=== PATIENT | female | born 1970 | race Caucasian/White ===

== ENCOUNTER → 2016-05-18 | Outpatient (CLI) | payer BC ==
--- NOTE | 2016-05-18 09:38 | MM ---
Reason for exam: additional evaluation requested from prior study. Last mammogram was performed 1 year ago. History: Family history of breast cancer in 2 maternal aunts. Benign excisional biopsy of the right breast, 2010. Benign right US cyst aspiration of the right breast, December 28, 2008. Benign right breast US guided needle local of both breasts, December 28, 2008. Benign US right core biopsy of the right breast, March 24, 2007. Benign US right core biopsy of the right breast, December 14, 2006. Benign US right core biopsy of the right breast, December 14, 2006. Physical Findings: Nurse did not find any significant physical abnormalities on exam. MG Diagnostic Mammo w CAD SHALOM Bilateral CC and MLO view(s) were taken. Prior study comparison: May 07, 2015, bilateral MG 3d diag mammo w/cad SHALOM. March 19, 2014, bilateral MG diagnostic mammo w CAD SHALOM. The breast tissue is heterogeneously dense. This may lower the sensitivity of mammography. Benign calcifications. There is chronic nodularity bilaterally, improved. No significant new findings when compared with previous films. These results were verbally communicated with the patient and result sheet given to the patient on 05/18/16. ASSESSMENT: Benign, BI-RAD 2 RECOMMENDATION: Routine screening mammogram of both breasts in 1 year. Manage patient on a clinical basis.
== END | disposition home or self-care (01) ==
LOC: RADMAMWWP 08:37
PROVIDERS: ATTEND Family Medicine
DX: R92.8 Other abnormal and inconclusive findings on diagnostic imaging of breast (principal)

== ENCOUNTER → 2016-10-06 | Outpatient (CLI) | payer BC ==
--- NOTE | 2016-10-06 09:52 | CT ---
EXAMINATION TYPE: CT abdomen pelvis w con DATE OF EXAM: 10/06/2016 9:36 AM HISTORY: Distention and discomfort right abdominal area CT DLP: 506.6mGycm Automated Exposure Control for Dose Reduction was Utilized. CONTRAST: CT scan of the abdomen and pelvis is performed with IV Contrast, patient injected with 100 mL of Omni paque 300. COMPARISON: CT abdomen and pelvis August 08, 2014. FINDINGS: LUNG BASES: No significant abnormality is appreciated. LIVER/GB: No significant abnormality is appreciated. PANCREAS: No significant abnormality is seen. SPLEEN: No significant abnormality is seen. ADRENALS: No significant abnormality is seen. KIDNEYS: Subcentimeter low dense lesion right lateral kidney mid pole level on image 30 series 5 is t oo small to further characterize but presumed benign and stable. BOWEL: The oral contrast reaches level of distal ileum. There is fecal filled terminal ileum. There i s no suspicious small bowel dilatation. CT findings are consistent with delayed ingestion of ingested material 2 colonic level. There is moderate prominence of fecal material in the right and transverse colon. No suspicious colonic distention is seen. There is mild prominence of fecal material in the r ectum. Appendix is upper limits of normal in size without surrounding inflammatory change seen best o n coronal image 36. UTERUS/ADNEXA: Uterus is retroverted in shape extending to right of midline, it is slightly prominent and lobulated similar to prior CT study. No definitive fibroids were seen on transvaginal pelvic ult rasound August 16, 2014. MRI is more sensitive performed if desired. LYMPH NODES: No greater than 1cm abdominal or pelvic lymph nodes are appreciated. OSSEOUS STRUCTURES: Mild multilevel spurring in the spine is present. OTHER: No significant additional abnormality is seen. IMPRESSION: Small bowel feces sign consistent with delayed passage of ingested to colonic level. No b owel obstruction is present. There is mild to moderate diffuse colonic fecal stasis noted.
== END | disposition home or self-care (01) ==
LOC: RADCTMAIN 08:39
PROVIDERS: ATTEND Family Medicine
DX: K59.8 Other specified functional intestinal disorders (principal); R10.11 Right upper quadrant pain
CPT/HCPCS: 74177; Q9967

== ENCOUNTER → 2019-06-30 | Outpatient (CLI) | payer BC ==
--- NOTE | 2019-06-30 14:51 | XR ---
EXAMINATION TYPE: XR shoulder complete LT DATE OF EXAM: 06/30/2019 CLINICAL HISTORY: pain COMPARISON: NONE TECHNIQUE: Three views of the left shoulder are obtained. FINDINGS: There is no acute fracture/dislocation evident. The acromioclavicular and glenohumeral [place] int spaces appear within normal limits. The visualized ribs are intact and unremarkable. IMPRESSION: 1. There is no acute fracture or dislocation. ICD 10 NO FRACTURE, INITIAL EVALUATION
--- NOTE | 2019-06-30 14:52 | XR ---
EXAMINATION TYPE: XR cervical spine comp DATE OF EXAM: 06/30/2019 CLINICAL HISTORY: pain COMPARISON: NONE TECHNIQUE: Frontal, lateral, oblique, swimmers, and open mouth view of the cervical spine are obtaine d. FINDINGS: The cervical spine is visualized in its entirety from C1 thru the top of T1 level. It is s atisfactory in alignment without evidence of acute fracture or dislocation. The pre-vertebral soft t issue appears within normal limits. Disc spaces are well preserved. The C1-C2 articulation is unremar kable on the open mouth view. The oblique images are within normal limits. IMPRESSION: No acute fracture or dislocation is seen in the cervical spine.ICD 10 NO FRACTURE, INITI AL EVALUATION
--- NOTE | 2019-06-30 14:52 | XR ---
EXAMINATION TYPE: XR Hip Bilateral Complete DATE OF EXAM: 06/30/2019 CLINICAL HISTORY: pain TECHNIQUE: AP and frogleg views of the bilateral hips are obtained. COMPARISON: None. FINDINGS: There is no acute fracture/dislocation evident. The joint space appears within normal li mits. The overlying soft tissue appears unremarkable. IMPRESSION: 1. There is no acute fracture or dislocation. ICD 10 NO FRACTURE, INITIAL EVALUATION
== END | disposition home or self-care (01) ==
LOC: RADXRMAIN 13:47
PROVIDERS: ATTEND Family Medicine
DX: M54.2 Cervicalgia (principal); M25.512 Pain in left shoulder; M25.551 Pain in right hip; M25.552 Pain in left hip
CPT/HCPCS: 72050; 73521

== ENCOUNTER → 2019-07-07 | Outpatient (CLI) | payer BC ==
--- NOTE | 2019-07-07 08:37 | MR ---
EXAMINATION TYPE: MR hip LT wo con DATE OF EXAM: 07/07/2019 COMPARISON: Bilateral hip x-ray from one week earlier.. HISTORY: Left hip pain Standard multiplanar, multisequence MRI departmental protocol Multiplanar, multisequence images of the pelvis focusing on left hip were acquired. FINDINGS: There is some heterogeneity consistent with red marrow reconversion throughout the pelvis a nd visualized portion of both hips. Left hip shows no suspicious edema. No serpiginous low T1 signal to suggest avascular necrosis is present. There is symmetric mild axial joint space loss in both hips . No significant spurring. No significant subchondral cystic change. Small symmetric joint effusions favored physiologic. Femoral head shape is maintained bilaterally. Muscle bulk in the left thigh is symmetric and within normal limits. No suspicious groin hernia or ad enopathy noted bilaterally. There is increased fluid signal at level of the greater trochanter in the right hip consistent with mild trochanteric bursitis coronal image 11 for reference and axial image 10. There is 2.9 cm thin-walled cyst in the right pelvis coronal image 12 with smaller adjacent cyst post eriorly or thin septa seen on axial images. Retroverted uterus is present. Left ovary has subcentimet er T2 hyperintense lesion axial image 20. Tubular low shaped structure in vaginal canal consistent wi th tampon is present. Poorly distended bladder. No concerning pelvic fluid collection. No suspicious bowel dilatation. Sacroiliac joints maintained. Pubic symphysis intact. IMPRESSION: Mild degenerative changes in left hip as detailed above.
== END | disposition home or self-care (01) ==
LOC: RADMRIMAIN 07:36
PROVIDERS: ATTEND Family Medicine
DX: M16.12 Unilateral primary osteoarthritis, left hip (principal)

== ENCOUNTER → 2021-07-01 | Outpatient (CLI) | payer BC ==
--- NOTE | 2021-07-01 12:03 | MM ---
Reason for exam: clinical finding. Last mammogram was performed 5 years and 1 month ago. History: Family history of breast cancer in 2 maternal aunts. Benign excisional biopsy of the right breast, 2010. Benign right US cyst aspiration of the right breast, December 28, 2008. Benign right breast US guided needle local of both breasts, December 28, 2008. Benign US right core biopsy of the right breast, March 24, 2007. Benign US right core biopsy of the right breast, December 14, 2006. Benign US right core biopsy of the right breast, December 14, 2006. Indicated problem(s): lump or thickening in the left breast. Physical Findings: Nurse did not find any significant physical abnormalities on exam. MG 3D Diag Mammo W/Cad SHALOM Bilateral CC and MLO view(s) were taken. Spot compression CC, spot compression MLO, and ML view(s) were taken of the left breast. Prior study comparison: May 18, 2016, bilateral MG diagnostic mammo w CAD SHALOM. May 07, 2015, bilateral MG 3d diag mammo w/cad SHALOM. The breast tissue is heterogeneously dense. This may lower the sensitivity of mammography. Left upper outer quadrant palpable marker. Questionable lateral left distortion at palpable. This may persist on spot 3D. No clear MLO or lateral correlate. These results were verbally communicated with the patient and result sheet given to the patient on 07/01/21. ASSESSMENT: Incomplete: need additional imaging evaluation, BI-RAD 0 RECOMMENDATION: Ultrasound of the left breast.
--- NOTE | 2021-07-01 12:06 | USB ---
Reason for exam: additional evaluation requested from abnormal screening. History: Family history of breast cancer in 2 maternal aunts. Benign excisional biopsy of the right breast, 2010. Benign right US cyst aspiration of the right breast, December 28, 2008. Benign right breast US guided needle local of both breasts, December 28, 2008. Benign US right core biopsy of the right breast, March 24, 2007. Benign US right core biopsy of the right breast, December 14, 2006. Benign US right core biopsy of the right breast, December 14, 2006. US Breast Limited LT Left limited breast ultrasound including focal area of concern, retroareolar and axilla demonstrates a 0.3 x 0.3 x 0.4cm focal dense tissue containing a tiny cyst at 2 o'clock. 6 month follow up mammogram and ultrasound recommended. If any suspicious changes at that time, 3D upright biopsy can be considered. These results were verbally communicated with the patient and result sheet given to the patient on 07/01/21. ASSESSMENT: Probably benign, BI-RAD 3 RECOMMENDATION: Follow-up diagnostic mammogram and ultrasound of the left breast in 6 months.
== END | disposition home or self-care (01) ==
LOC: RADMAMWWP 09:34
PROVIDERS: ATTEND Family Medicine
DX: N63.0 Unspecified lump in unspecified breast (principal)
CPT/HCPCS: 77062; 77066

== ENCOUNTER → 2022-01-09 | Outpatient (CLI) | payer BC ==
--- NOTE | 2022-01-09 13:49 | MM ---
Reason for Exam: Follow-up at short interval from prior study. Last screening mammogram was performed 7 month(s) ago. Patient History: Menarche at age 11. First Full-Term at age 15. Right ovary removed at age 32. 2010, Benign Excisional Biopsy on the right side. 12/28/2008, Benign Cyst Aspiration on the right side. 12/28/2008, Bilateral Benign Excisional Biopsy. 03/24/2007, Benign Core Biopsy on the right side. 12/14/2006, Benign Core Biopsy on the right side. 12/14/2006, Benign Core Biopsy on the right side. Maternal aunt had breast cancer. Maternal aunt had breast cancer. Risk Values: Ila 5 year model risk: 1.2%. NCI Lifetime model risk: 9.2%. Prior Study Comparison: 05/07/2015 Bilateral Diagnostic Mammogram, [facility]. 05/18/2016 Bilateral Diagnostic Mammogram, [facility]. 07/01/2021 Bilateral Diagnostic Mammogram, [facility]. Tissue Density: Left: The breast tissue is heterogeneously dense. This may lower the sensitivity of mammography. Findings: Analyzed By CAD. There is a 0.6 cm oval density with circumscribed margins in the upper-outer aspect left posterior breast 6 cm from the nipple. Ultrasound is recommended for additional evaluation. This is an interval finding. Overall Assessment: Incomplete: need additional imaging evaluation, BI-RAD 0 Management: Diagnostic Breast Ultrasound of the left breast. A negative mammogram report should not preclude additional follow up of suspicious palpable abnormalities. Patient should continue monthly self breast exam. A clinical breast exam by your physician is recommended on an annual basis and results should be correlated with mammographic findings. Electronically signed and approved by: Jose C Campa D.O. Radiologis
--- NOTE | 2022-01-09 14:14 | USB ---
Reason for Exam: Follow-up at short interval from prior study. Patient History: Menarche at age 11. First Full-Term at age 15. Right ovary removed at age 32. 2010, Benign Excisional Biopsy on the right side. 12/28/2008, Benign Cyst Aspiration on the right side. 12/28/2008, Bilateral Benign Excisional Biopsy. 03/24/2007, Benign Core Biopsy on the right side. 12/14/2006, Benign Core Biopsy on the right side. 12/14/2006, Benign Core Biopsy on the right side. Maternal aunt had breast cancer. Maternal aunt had breast cancer. Risk Values: Ila 5 year model risk: 1.2%. NCI Lifetime model risk: 9.2%. Technique: Method: Targeted. Prior Study Comparison: 05/07/2015 Bilateral Diagnostic Mammogram, [facility]. 05/18/2016 Bilateral Diagnostic Mammogram, [facility]. 07/01/2021 Bilateral Diagnostic Mammogram, [facility]. Findings: The upper outer quadrant of the left breast, the axilla of the left breast and the retroareolar of the left breast were scanned. There is a 0.7 x 0.4 x 0.8 cm cyst with good through transmission posterior wall enhancement and smooth borders at the 1:00 position compatible with a simple cyst. There appear to be 2 adjacent small cysts in the 2:00 position left breast. There is a simple appearing cyst at 3:00 measuring 0.8 x 0.5 cm. Adjacent 0.4 cm cyst is at the 3:00 position 3 cm from the nipple. Overall Assessment: Benign, BI-RAD 2 Management: Screening Mammogram of both breasts in 6 months. A clinical breast exam by your physician is recommended on an annual basis and results should be correlated with mammographic findings. Electronically signed and approved by: Jose C Campa D.O. Radiologis
== END | disposition home or self-care (01) ==
LOC: RADMAMWWP 12:58
PROVIDERS: ATTEND Family Medicine
DX: R92.8 Other abnormal and inconclusive findings on diagnostic imaging of breast (principal); Z80.3 Family history of malignant neoplasm of breast; Z98.890 Other specified postprocedural states; Z90.721 Acquired absence of ovaries, unilateral
CPT/HCPCS: 77065

== ENCOUNTER 2022-07-19 13:20 | Observation (INO) | payer BC ==
[2022-07-19] MEDS ORDERED: NITROGLYCERIN SL TABS 0.4 MG TAB SUBLINGUAL STA (13:41)
[2022-07-19] MEDS ORDERED: ASPIRIN 81 MG PO STA (13:41)
[2022-07-19] MEDS ORDERED: NITROGLYCERIN OINT 1 INCH/GM PACKET TOPICAL STA (13:41)
[2022-07-19] MEDS ORDERED: LORazepam 2 MG/ML INJ IV STA (13:41)
--- NOTE | 2022-07-19 13:45 | ED ---
General Adult HPI - General Chief complaint: Chest Pain Stated complaint: chest pain Time Seen by Provider: 07/19/22 13:30 Source: patient, RN notes reviewed, old records reviewed Mode of arrival: ambulatory Limitations: no limitations - History of Present Illness Initial comments: This is a 52-year-old female presents emergency Department with a past medical history significant for hypothyroidism for which she is not taking her medications any longer. Patient also states she has high blood pressure but she's not on medications that she is post get some follow-up blood work but never has. Patient doesn't not think she is at her at high cholesterol and she states she is a borderline diabetic. Patient denies any recent fever chills or cough per patient comes in today because she's placing some intermittent left- sided chest pain starts as a sharp pain but it progresses into a pressure and radiates into her armpit and arm. Patient also states she was mildly short of breath with it. Patient states she she has become diaphoretic when she gets the chest pain. Patient denies any nausea. Patient denies abdominal pain patient is any lightheadedness or dizziness. Patient denies palpitations. - Related Data Home Medications Medication Instructions Recorded Confirmed Cholecalciferol (Vitamin D3) 2,000 unit PO MOTUWETHFR 12/05/18 12/05/18 [Vitamin D3] Cholecalciferol (Vitamin D3) 4,000 unit PO SUSA 12/05/18 12/05/18 [Vitamin D3] Cyanocobalamin [Vitamin B-12] 500 mcg SUBLINGUAL DAILY 12/05/18 12/05/18 Dextroamphetamine/Amphetamine 20 mg PO BID 12/05/18 12/05/18 [Adderall] Famotidine [Pepcid AC] 10 mg PO DAILY PRN 12/05/18 12/05/18 Ibuprofen [Advil] 200 mg PO Q8HR PRN 12/05/18 12/05/18 Levothyroxine Sodium [Synthroid] 88 mcg PO DAILY 12/05/18 12/05/18 Turmeric Root Extract [Turmeric] 500 mg PO DAILY 12/05/18 12/05/18 Allergies Allergy/AdvReac Type Severity Reaction Status Date / Time No Known Allergies Allergy Verified 07/19/22 13:26 Review of Systems ROS Statement: Those systems with pertinent positive or pertinent negative responses have been documented in the HPI. ROS Other: All systems not noted in ROS Statement are negative. Past Medical History Past Medical History: Asthma, GERD/Reflux, Hypertension, Thyroid Disorder Additional Past Medical History / Comment(s): heart murmur History of Any Multi-Drug Resistant Organisms: None Reported Past Surgical History: Tonsillectomy Additional Past Surgical History / Comment(s): 2 ectopic surgery, thyroidectomy for goiter Past Anesthesia/Blood Transfusion Reactions: Postoperative Nausea & Vomiting (PONV) Additional Past Anesthesia/Blood Transfusion Reaction / Comment(s): mom-ponv Past Psychological History: ADD/ADHD, Anxiety Smoking Status: Former smoker Past Alcohol Use History: Rare Past Drug Use History: Marijuana - Past Family History Father Family Medical History: Cancer Sister(s) Family Medical History: Cancer Additional Family Medical History / Comment(s): 1-ovarian, 1 thyroid. maternal grandma hx rectal cancer General Exam - General Exam Comments Initial Comments: GENERAL: Patient is well-developed and well-nourished. Patient is nontoxic and well- hydrated and is in mild distress. ENT: Neck is soft and supple. No significant lymphadenopathy is noted. Oropharynx is clear. Moist mucous membranes. Neck has full range of motion without eliciting any pain. EYES: The sclera were anicteric and conjunctiva were pink and moist. Extraocular movements were intact and pupils were equal round and reactive to light. Eyelids were unremarkable. PULMONARY: Unlabored respirations. Good breath sounds bilaterally. No audible rales rhonchi or wheezing was noted. CARDIOVASCULAR: There is a regular rate and rhythm without any murmurs gallops or rubs. ABDOMEN: Soft and nontender with normal bowel sounds. SKIN: Skin is clear with no lesions or rashes and otherwise unremarkable. NEUROLOGIC: Patient is alert and oriented x3. Cranial nerves II through XII are grossly intact. Motor and sensory are also intact. Normal speech, volume and content. Symmetrical smile. MUSCULOSKELETAL: Normal extremities with adequate strength and full range of motion. No lower extremity swelling or edema. No calf tenderness. LYMPHATICS: No significant lymphadenopathy is noted PSYCHIATRIC: Patient is mildly anxious Limitations: no limitations Course Vital Signs 07/19/22 07/19/22 13:26 14:09 Temperature 98 F Pulse Rate 75 82 Respiratory 18 20 Rate Blood Pressure 200/116 144/90 O2 Sat by Pulse 98 Oximetry Medical Decision Making - Medical Decision Making EKG is interpreted by myself shows a sinus rhythm at 60 bpm WA interval 145 QRS is 92 QT interval 370 QTC is 396. Patient's EKG shows no ST segment elevation. There is minimal ST segment depression in the inferior leads Was pt. sent in by a medical professional or institution (, PA, SALES ENGAGEMENT MANAGER, urgent care, hospital, or [facility]...) When possible be specific @ -No Did you speak to anyone other than the patient for history (EMS, parent, family, police, friend...)? What history was obtained from this source @ -No Did you review nursing and triage notes (agree or disagree)? Why? @ -I reviewed and agree with nursing and triage notes Were old charts reviewed (outside hosp., previous admission, EMS record, old EKG, old radiological studies, urgent care reports/EKG's, [facility] records)? Report findings @ -Reviewed prior lab work prior radiological studies. Differential Diagnosis (chest pain, altered mental status, abdominal pain women, abdominal pain men, vaginal bleeding, weakness, fever, dyspnea, syncope, h eadache, dizziness, GI bleed, back pain, seizure, CVA, palpatations, mental health, musculoskeletal)? @ -Differential Chest Pain: Stable Angina, Unstable Angina, STEMI, NSTEMI Aortic Dissection, Pneumothorax, Musculoskeletal, Esophageal Spasm GERD, Cholecystitis, Pancreatitis, Zoster, this is not meant to be an all-inclusive list. EKG interpreted by me (3pts min.). @ -As above X-rays interpreted by me (1pt min.). @ -Chest x-ray was interpreted by myself showed no acute abnormality CT interpreted by me (1pt min.). @ -None done U/S interpreted by me (1pt. min.). @ -None done What testing was considered but not performed or refused? (CT, X-rays, U/S, labs)? Why? @ -None What meds were considered but not given or refused? Why? @ -None Did you discuss the management of the patient with other professionals ( professionals i.e. , PA, SALES ENGAGEMENT MANAGER, lab, RT, psych nurse, mental health social worker, vegetable farming supervisor, teacher, correctional officer sergeant, disease case manager rn)? Give summary @ -I spoke with Dr. rios he agreed to admit the patient admitted the patient wrote admitting orders Was smoking cessation discussed for >3mins.? @ -No Was critical care preformed (if so, how long)? @ -No Were there social determinants of health that impacted care today? How? (Homelessness, low income, unemployed, alcoholism, drug addiction, transportat ion, low edu. Level, literacy, decrease access to med. care, halfway, rehab)? @ -No Was there de-escalation of care discussed even if they declined (Discuss DNR or withdrawal of care, Hospice)? DNR status @ -No What co-morbidities impacted this encounter? (DM, HTN, Smoking, COPD, CAD, Cancer, CVA, ARF, Chemo, Hep., AIDS, mental health diagnosis, sleep apnea, morbid obesity)? @ -Hypertension, borderline diabetic Was patient admitted / discharged? Hospital course, mention meds given and route, prescriptions, significant lab abnormalities, going to OR and other pertinent info. @ -I initially saw patient in the emergency department EKG was done no acute abnormalities were noted. Lab work showed no acute abnormalities. Patient did receive a nitroglycerin at helped with the pain troponin was negative. I spoke with Dr. rios he agreed to admit the patient admitted the patient I consult to cardiology. Undiagnosed new problem with uncertain prognosis? @ -No Drug Therapy requiring intensive monitoring for toxicity (Heparin, Nitro, Insulin, Cardizem)? @ -No Were any procedures done? @ -No Diagnosis/symptom? @ -Chest pain Acute, or Chronic, or Acute on Chronic? @ -Acute Uncomplicated (without systemic symptoms) or Complicated (systemic symptoms)? @ -Complicated Side effects of treatment? @ -No Exacerbation, Progression, or Severe Exacerbation? @ -No Poses a threat to life or bodily function? How? (Chest pain, USA, CT, pneumonia, PE, COPD, DKA, ARF, appy, cholecystitis, CVA, Diverticulitis, Homicidal, Suicidal, threat to staff... and all critical care pts) @ -Yes is completely to hypoperfusion and end oriented dysfunction - Lab Data Result diagrams: 07/19/22 13:51 07/19/22 13:51 Lab Results 07/19/22 07/19/22 07/19/22 Range/Units 13:51 13:51 13:51 WBC 8.9 (3.8-10.6) k/uL RBC 5.60 H (3.80-5.40) m/uL Hgb 15.8 (11.4-16.0) gm/dL Hct 46.8 H (34.0-46.0) % MCV 83.5 (80.0-100.0) fL MCH 28.3 (25.0-35.0) pg MCHC 33.9 (31.0-37.0) g/dL RDW 12.4 (11.5-15.5) % Plt Count 320 (150-450) k/uL MPV 7.9 Neutrophils % 67 % Lymphocytes % 25 % Monocytes % 5 % Eosinophils % 1 % Basophils % 1 % Neutrophils # 6.0 (1.3-7.7) k/uL Lymphocytes # 2.2 (1.0-4.8) k/uL Monocytes # 0.5 (0-1.0) k/uL Eosinophils # 0.1 (0-0.7) k/uL Basophils # 0.1 (0-0.2) k/uL PT 10.7 (9.0-12.0) sec INR 1.0 (<1.2) APTT 22.5 (22.0-30.0) sec Sodium 136 L (137-145) mmol/L Potassium 4.4 (3.5-5.1) mmol/L Chloride 98 (98-107) mmol/L Carbon Dioxide 27 (22-30) mmol/L Anion Gap 11 mmol/L BUN 16 (7-17) mg/dL Creatinine 0.65 (0.52-1.04) mg/dL Est GFR (CKD-EPI)AfAm >90 (>60 ml/min/1.73 sqM) Est GFR (CKD-EPI)NonAf >90 (>60 ml/min/1.73 sqM) Glucose 118 H (74-99) mg/dL Calcium 9.9 (8.4-10.2) mg/dL Magnesium 1.9 (1.6-2.3) mg/dL Total Bilirubin 0.7 (0.2-1.3) mg/dL AST 28 (14-36) U/L ALT 27 (4-34) U/L Alkaline Phosphatase 75 (38-126) U/L Troponin I (0.000-0.034) ng/mL Total Protein 8.6 H (6.3-8.2) g/dL Albumin 5.1 H (3.5-5.0) g/dL TSH 1.500 (0.465-4.680) mIU/L 07/19/22 Range/Units 13:51 WBC (3.8-10.6) k/uL RBC (3.80-5.40) m/uL Hgb (11.4-16.0) gm/dL Hct (34.0-46.0) % MCV (80.0-100.0) fL MCH (25.0-35.0) pg MCHC (31.0-37.0) g/dL RDW (11.5-15.5) % Plt Count (150-450) k/uL MPV Neutrophils % % Lymphocytes % % Monocytes % % Eosinophils % % Basophils % % Neutrophils # (1.3-7.7) k/uL Lymphocytes # (1.0-4.8) k/uL Monocytes # (0-1.0) k/uL Eosinophils # (0-0.7) k/uL Basophils # (0-0.2) k/uL PT (9.0-12.0) sec INR (<1.2) APTT (22.0-30.0) sec Sodium (137-145) mmol/L Potassium (3.5-5.1) mmol/L Chloride (98-107) mmol/L Carbon Dioxide (22-30) mmol/L Anion Gap mmol/L BUN (7-17) mg/dL Creatinine (0.52-1.04) mg/dL Est GFR (CKD-EPI)AfAm (>60 ml/min/1.73 sqM) Est GFR (CKD-EPI)NonAf (>60 ml/min/1.73 sqM) Glucose (74-99) mg/dL Calcium (8.4-10.2) mg/dL Magnesium (1.6-2.3) mg/dL Total Bilirubin (0.2-1.3) mg/dL AST (14-36) U/L ALT (4-34) U/L Alkaline Phosphatase (38-126) U/L Troponin I <0.012 (0.000-0.034) ng/mL Total Protein (6.3-8.2) g/dL Albumin (3.5-5.0) g/dL TSH (0.465-4.680) mIU/L Disposition Clinical Impression: Chest pain Disposition: ADMITTED IP TO THIS HOSP Referrals: Ladonna Solomon MD [Primary Care Provider] - 1-2 days Time of Disposition: 14:50
[2022-07-19 14:06] LABS: Basophils # (A) 0.1 k/uL (0-0.2); Basophils % (A) 1 %; Eosinophils # (A) 0.1 k/uL (0-0.7); Eosinophils % (A) 1 %; HCT 46.8 % (34.0-46.0); HGB 15.8 gm/dL (11.4-16.0); Lymphocytes # (A) 2.2 k/uL (1.0-4.8); Lymphocytes % (A) 25 %; MCH 28.3 pg (25.0-35.0); MCHC 33.9 g/dL (31.0-37.0); MCV 83.5 fL (80.0-100.0); Mean Platelet Volume 7.9; Monocytes # (A) 0.5 k/uL (0-1.0); Monocytes % (A) 5 %; Neutrophils % (A) 67 %; Platelet Count 320 k/uL (150-450); RDW 12.4 % (11.5-15.5); WBC 8.9 k/uL (3.8-10.6)
[2022-07-19 14:09] LABS: Potassium 4.4 mmol/L (3.5-5.1)
[2022-07-19 14:10] LABS: ALT 27 U/L (4-34); AST 28 U/L (14-36); African American GFR (CKD) >90 (>60 ml/min/1.73 sqM); Albumin 5.1 g/dL (3.5-5.0); Alkaline Phosphatase 75 U/L (38-126); Anion Gap 11 mmol/L; Blood Urea Nitrogen 16 mg/dL (7-17); Calcium 9.9 mg/dL (8.4-10.2); Carbon Dioxide 27 mmol/L (22-30); Chloride 98 mmol/L (98-107); Glucose 118 mg/dL (74-99); Magnesium 1.9 mg/dL (1.6-2.3); Non-African American GFR(CKD) >90 (>60 ml/min/1.73 sqM); Sodium 136 mmol/L (137-145); Total Bilirubin 0.7 mg/dL (0.2-1.3); Total Protein 8.6 g/dL (6.3-8.2)
[2022-07-19 14:11] LABS: Partial Thromboplastin Time 22.5 sec (22.0-30.0); Prothrombin Time 10.7 sec (9.0-12.0)
--- NOTE | 2022-07-19 14:40 | XR ---
EXAMINATION TYPE: XR chest 2V DATE OF EXAM: 07/19/2022 2:35 PM COMPARISON: None relevant TECHNIQUE: XR chest 2V . CLINICAL INDICATION:Female, 52 years old with history of Chest Pain; FINDINGS: Lungs/Pleura: There is no evidence of pleural effusion, focal consolidation, or pneumothorax. Pulmonary vascularity: Unremarkable. Heart/mediastinum: Cardiomediastinal silhouette is unremarkable. Musculoskeletal: No acute osseous pathology. Degenerative changes of the thoracic spine. IMPRESSION: No acute cardiopulmonary disease/process.
[2022-07-19] MEDS ORDERED: NITROGLYCERIN SL TABS 0.4 MG TAB SUBLINGUAL PRN (14:50)
[2022-07-19] MEDS: NITROGLYCERIN OINT 1 INCH/GM PACKET TOPICAL SCH (17:14)
--- NOTE | 2022-07-19 17:31 | P.HPIM ---
History of Present Illness This is a pleasant 52 years old female with no significant past medical history Presents because of chest pain since about 3 days ago, on and off, rated as 3/10 in severity on the presentation, mainly on the left chest, non radiating felt like stabbing and like flutter and locked pressure. Currently states that chest pain is completely resolved as 0/10. She denies any other complaints, no dyspnea or coughing, no change in urine or bowel habits, no dysuria urgency, no vomiting diarrhea or abdominal pain. She denies any neurological symptoms, she had little headache earlier but is gone now, no dizziness weakness or numbness She denies smoking alcohol or illicit drugs Vitals are stable. CBC, INR, BMP and liver enzymes are unremarkable. TSH is normal at 1.5 Chest x-ray: No acute cardiopulmonary process. EKG showing normal sinus rhythm at [address]-T changes. In the emergency room she was started on aspirin 325 mg and admitted with animal nutrition consultant evaluation Review of Systems Review of systems CONSTITUTIONAL: No fever, no malaise, no fatigue. HEENT: No recent visual problems or hearing problems. Denied any sore throat. CARDIOVASCULAR: No orthopnea, PND, no palpitations, no syncope. PULMONARY: No shortness of breath, no cough, no hemoptysis. GASTROINTESTINAL: No diarrhea, no nausea, no vomiting, no abdominal pain. Normoactive bowel sounds. NEUROLOGICAL: No headaches, no weakness, no numbness. HEMATOLOGICAL: Denies any bleeding or petechiae. GENITOURINARY: Denies any burning micturition, frequency, or urgency. MUSCULOSKELETAL/RHEUMATOLOGICAL: Denies any joint pain, swelling, or any muscle pain. ENDOCRINE: Denies any polyuria or polydipsia. Past Medical History Past Medical History: Asthma, GERD/Reflux, Hypertension, Thyroid Disorder Additional Past Medical History / Comment(s): heart murmur History of Any Multi-Drug Resistant Organisms: None Reported Past Surgical History: Tonsillectomy Additional Past Surgical History / Comment(s): 2 ectopic surgery, thyroidectomy for goiter Past Anesthesia/Blood Transfusion Reactions: Postoperative Nausea & Vomiting (PONV) Additional Past Anesthesia/Blood Transfusion Reaction / Comment(s): mom-ponv Past Psychological History: ADD/ADHD, Anxiety Smoking Status: Former smoker Past Alcohol Use History: Rare Additional Past Alcohol Use History / Comment(s): quit 1999 smoked 15 years 1 ppd Past Drug Use History: Marijuana - Past Family History Father Family Medical History: Cancer Sister(s) Family Medical History: Cancer Additional Family Medical History / Comment(s): 1-ovarian, 1 thyroid. maternal grandma hx rectal cancer Medications and Allergies Home Medications Medication Instructions Recorded Confirmed Type Cyanocobalamin [Vitamin B-12] 500 mcg PO DAILY 12/05/18 07/19/22 History Ascorbic Acid [Vitamin C] 3,000 mg PO DAILY 07/19/22 07/19/22 History Cholecalciferol [Vitamin D3 (25 50 mcg PO DAILY 07/19/22 07/19/22 History Mcg = 1000 Iu)] Dextroamphetamine/Amphetamine 15 mg PO DIRECTED 07/19/22 07/19/22 History [Adderall] Magnesium Oxide [Magnesium] 500 mg PO DAILY 07/19/22 07/19/22 History Eminence-3/Dha/Epa/Fish Oil [Fish Oil 1 cap PO DAILY 07/19/22 07/19/22 History 1,000 mg Softgel] Zinc 10mg 10 mg PO DAILY 07/19/22 07/19/22 History Allergies Allergy/AdvReac Type Severity Reaction Status Date / Time No Known Allergies Allergy Verified 07/19/22 14:47 Physical Exam Vitals: Vital Signs Temp Pulse Pulse Resp BP BP Pulse Ox 07/19/22 16:11 98.0 F 74 16 113/75 98 07/19/22 15:42 80 20 118/91 96 07/19/22 14:09 82 20 144/90 07/19/22 13:26 98 F 75 18 200/116 98 Intake and Output 07/19/22 07/19/22 07/19/22 06:59 14:59 22:59 Other: Weight 72.575 kg 72.575 kg GENERAL: The patient is alert and oriented x3, not in any acute distress. Well developed, well nourished. HEENT: Pupils are round and equally reacting to light. EOMI. No scleral icterus. No conjunctival pallor. Normocephalic, atraumatic. No pharyngeal erythema. No thyromegaly. CARDIOVASCULAR: S1 and S2 present. No murmurs, rubs, or gallops. PULMONARY: Chest is clear to auscultation, no wheezing or crackles. ABDOMEN: Soft, nontender, nondistended, normoactive bowel sounds. No palpable organomegaly. MUSCULOSKELETAL: No joint swelling or deformity. EXTREMITIES: No cyanosis, clubbing, or pedal edema. NEUROLOGICAL: Gross neurological examination did not reveal any focal deficits. SKIN: No rashes. no petechiae. Results CBC & Chem 7: 07/19/22 13:51 03 13:51 Labs: Abnormal Lab Results - Last 24 Hours (Table) 07/19/22 07/19/22 Range/Units 13:51 13:51 RBC 5.60 H (3.80-5.40) m/uL Hct 46.8 H (34.0-46.0) % Sodium 136 L (137-145) mmol/L Glucose 118 H (74-99) mg/dL Total Protein 8.6 H (6.3-8.2) g/dL Albumin 5.1 H (3.5-5.0) g/dL Thrombosis Risk Factor Assmnt - Choose All That Apply Each Factor Represents 1 point: Age 41-60 years Thrombosis Risk Factor Assessment Total Risk Factor Score: 1 Thrombosis Risk Factor Assessment Level: Low Risk Assessment and Plan Assessment: Chest pain, rule out cardiac causes Mild anemia, normochromic normocytic Mild elevated glucose Plan: We'll do serial troponins and Check echocardiogram Continue with aspirin Cardiology consult Labs and medication were reviewed.. Continue same treatment. Continue with symptomatic treatment. Resume home medication. Monitor labs and vitals. DVT and GI prophylaxis. Further recommendations as per clinical course of the patient DVT prophylaxis: Subcutaneous heparin GI Prophylaxis: Pepcid Prognosis is guarded
[2022-07-19] MEDS: HEPARIN SODIUM,PORCINE/PF 5,000 UNIT/0.5 ML SYRINGE SQ SCH (22:13)
[2022-07-19] MEDS: FAMOTIDINE 20 MG/2 ML VIAL IV SCH (22:13)
[2022-07-20] MEDS ORDERED: HYDROcodone/APAP 5-325MG 1 EACH TAB PO PRN (01:03)
[2022-07-20] MEDS ORDERED: ONDANSETRON 4 MG/2 ML VIAL IVP PRN (01:05)
[2022-07-20] MEDS ORDERED: ACETAMINOPHEN TAB 325 MG TAB PO PRN (01:14)
[2022-07-20] MEDS: FAMOTIDINE 20 MG/2 ML VIAL IV SCH ×2 (08:14→19:58)
[2022-07-20] MEDS: HEPARIN SODIUM,PORCINE/PF 5,000 UNIT/0.5 ML SYRINGE SQ SCH ×2 (08:15→15:45)
[2022-07-20] MEDS ORDERED: ASPIRIN 325 MG TAB PO SCH (09:00)
[2022-07-20] MEDS ORDERED: METOPROLOL TARTRATE 25 MG TAB PO SCH (09:00)
[2022-07-20 09:15] LABS: Chol/HDL Ratio 3.98 Ratio; LDL Cholesterol,Calculated 146.6 mg/dL (0.0-131.0); VLDL Calculation 14.42 mg/dL (5.00-40.00)
[2022-07-20 10:23] LABS: T4, Free (Free Thyroxine) 1.29 ng/dL (0.78-2.19)
[2022-07-20] MEDS: NITROGLYCERIN OINT 1 INCH/GM PACKET TOPICAL SCH (11:03)
--- NOTE | 2022-07-20 11:20 | CONS ---
CONSULTATION HISTORY OF PRESENT ILLNESS: This is a 52-year-old lady, who carries a diagnosis of hypothyroidism, was on replacement therapy, but because she was euthyroid, her supplements were stopped. She also has some ADHD type picture and also borderline hypertension. She is admitted to the hospital with an episode of what seems to be palpitations and chest tightness and pressure. She does treadmill every day and as she was walking on the treadmill, she felt that her heart was racing faster than usual and she also then complained of some tightness and discomfort in the chest. She came into the hospital with these symptoms. Her symptoms of chest pain have resolved altogether. She walked on the treadmill on for about 20 minutes without any discomfort in the chest. The pain that occurred in the chest is quite independent from her treadmill activity. She carries a diagnosis of hypertension borderline, thyroid issues as mentioned above, bronchial asthma, and gastroesophageal reflux disease. She does use marijuana. She quit smoking several years ago. She also has a history of some thyroid surgery in the past as well. HOME MEDICATIONS: Include, 1. Synthroid, which was recently stopped. 2. Ibuprofen. 3. She takes Pepcid and some vitamin supplements. 4. She used to take Adderall, which she takes sporadically. PHYSICAL EXAMINATION: VITAL SIGNS: Blood pressure is 128/70, pulse rate initially was at 120 beats per minute, but now it is 82 beats per minute. HEENT: Unremarkable. Fundus was not examined by me. NECK: Supple. No JVD. I do not hear a carotid bruit. There is no thyromegaly. HEART: Reveals S1, S2 heard normally. No significant murmurs. LUNGS: Clear. ABDOMEN: Soft, nontender. EXTREMITIES: Lower extremities reveal normal pulses. No edema. CENTRAL NERVOUS SYSTEM: Normal. DIAGNOSTIC STUDIES: EKG revealed a sinus mechanism with a nonspecific ST abnormality. LABORATORY DATA: Revealed unremarkable troponins. Renal function is normal. D-dimer is pending. Her LDL cholesterol is 146. IMPRESSION: 1. Palpitations. 2. Atypical chest pain. 3. Borderline hypertension. 4. History of hypothyroidism, but appears to be euthyroid. 5. Hyperlipidemia. RECOMMENDATIONS: I will recommend that we start her on a small dose of metoprolol tartrate 12.5 mg b.i.d. She appears to be somewhat dehydrated clinically. I will place her on 75 mL normal saline, obtain echocardiogram, perform a stress echo tomorrow. We will check D- dimer and initiate her on Lipitor at 20 mg daily. I will also check a free T4 and free T3 as well. Discussed my thoughts in detail with the patient. Thank you very much for the consult. RYAN / ESCOBAR: [id number] /
[2022-07-20] MEDS: METOPROLOL TARTRATE 12.5 MG TAB PO SCH ×2 (11:49→20:55)
[2022-07-20] MEDS: ATORVASTATIN 20 MG TAB PO SCH (11:52)
--- NOTE | 2022-07-20 15:20 | P.PN ---
Subjective Progress Note Date: 07/20/22 This is a pleasant 52 years old female with no significant past medical history Presents because of chest pain since about 3 days ago, on and off, rated as 3/10 in severity on the presentation, mainly on the left chest, nonradiating felt like stabbing and like flutter and locked pressure. Currently states that chest pain is completely resolved as 0/10. She denies any other complaints, no dyspnea or coughing, no change in urine or bowel habits, no dysuria urgency, no vomiting diarrhea or abdominal pain. She denies any neurological symptoms, she had little headache earlier but is gone now, no dizziness weakness or numbness She denies smoking alcohol or illicit drugs Vitals are stable. CBC, INR, BMP and liver enzymes are unremarkable. TSH is normal at 1.5 Chest x-ray: No acute cardiopulmonary process. EKG showing normal sinus rhythm at [address]-T changes. In the emergency room she was started on aspirin 325 mg and admitted with core placer evaluation 07/20/2022 Patient is seen and evaluated follow-up currently maintained on telemetry monitoring with cardiology following. Patient underwent 2-D echo this morning which the read is currently pending and cardiology following working on possible stress testing in the a.m. Patient reports her chest pain is completely resolved and she denies any shortness of breath or palpitations associated. Patient reports she was told by nursing staff that her heart rate elevates while she is up and walking although she denies any itchiness, lightheadedness, palpitations, chest pain during this. Patient is agreeable to stay and await for the stress testing. Recommend telemetry monitoring overnight and patient will be nothing by mouth at midnight. Review of systems: Constitutional: No reports of fatigue, fever, or chills Cardiovascular: No reports of chest pain or palpitations Respiratory: No reports of shortness of breath or cough GI: No reports of nausea, vomiting, or diarrhea : No reports of dysuria or retention Neurovascular: No reports of weakness or numbness All medications have been reviewed Active Medications Acetaminophen (Acetaminophen Tab 325 Mg Tab) 650 mg PO Q6HR PRN PRN Reason: Fever and/ or Pain Last Admin: 07/20/22 03:16 Dose: 650 mg Hydrocodone Bitart/Acetaminophen (Hydrocodone/Apap 5-325mg 1 Each Tab) 1 each PO ONCE PRN PRN Reason: Pain Aspirin (Aspirin 81 Mg) 81 mg PO DAILY [facility] Atorvastatin Calcium (Atorvastatin 20 Mg Tab) 20 mg PO DAILY [facility] Last Admin: 07/20/22 11:52 Dose: Not Given Famotidine (Famotidine 20 Mg/2 Ml Vial) 20 mg IV Q12HR [facility] Last Admin: 07/20/22 08:14 Dose: Not Given Heparin Sodium (Porcine) (Heparin Sodium,Porcine/Pf 5,000 Unit/0.5 Ml Syringe) 5,000 unit SQ Q8HR [facility] Sodium Chloride (Saline 0.9%) 1,000 mls @ 75 mls/hr IV .[id number] [facility] Metoprolol Tartrate (Metoprolol Tartrate 12.5 Mg Tab) 12.5 mg PO BID [facility] Last Admin: 07/20/22 11:49 Dose: 12.5 mg Nitroglycerin (Nitroglycerin Sl Tabs 0.4 Mg Tab) 0.4 mg SUBLINGUAL Q5M PRN PRN Reason: Chest Pain Ondansetron HCl (Ondansetron 4 Mg/2 Ml Vial) 2 mg IVP Q6HR PRN PRN Reason: Nausea And Vomiting Physical exam: GENERAL: The patient is alert and oriented x3, not in any acute distress. Well developed, well nourished. HEENT: Pupils are round and equally reacting to light. EOMI. No scleral icterus. No conjunctival pallor. Normocephalic, atraumatic. No pharyngeal erythema. No thyromegaly. CARDIOVASCULAR: S1 and S2 present. No murmurs, rubs, or gallops. PULMONARY: Chest is clear to auscultation, no wheezing or crackles. ABDOMEN: Soft, nontender, nondistended, normoactive bowel sounds. No palpable organomegaly. MUSCULOSKELETAL: No joint swelling or deformity. EXTREMITIES: No cyanosis, clubbing, or pedal edema. NEUROLOGICAL: Gross neurological examination did not reveal any focal deficits. SKIN: No rashes. no petechiae. Assessment: Chest pain, atypical, ruled out ACS Mild elevated glucose, present on admission with no history of diabetes, sample was non-fasting History of hypothyroidism, currently euthyroid and maintained off supplements Hyperlipidemia Hypertension Plan: Recommend continue telemetry monitoring and patient did undergo 2-D echo which is currently pending Cardiology following and plans for stress testing in a.m. Patient did have some mildly elevated blood sugar reading and will obtain hemoglobin A1c. Patient does not have history of diabetes Troponins 3 have been negative and will follow-up on some labs in the a.m. Patient will be nothing by mouth at midnight and will await stress testing Possible discharge in the next 24-48 hours The impression and plan of care has been dictated by Isamar Miller, Nurse Practitioner as directed. Dr. Ayse MD I have performed a history and examination and MDM of this patient, discussed the same with the dictator, and agree with the dictator's assessment and plan as written ,documented as a scribe. Based on total visit time, I have performed more than 50% of the visit. Objective - Vital Signs Vital signs: Vital Signs Temp 97.9 F 07/20/22 08:00 Pulse 65 07/20/22 08:00 Resp 16 07/20/22 08:00 BP 122/80 07/20/22 08:00 Pulse Ox 98 07/20/22 09:28 FiO2 21 07/20/22 09:28 Intake & Output 07/19/22 07/20/22 07/20/22 18:59 06:59 18:59 Intake Total 240 Balance 240 Weight 72.575 kg 74.3 kg Intake: Oral 240 Other: Voiding Method Toilet # Voids 2 - Labs CBC & Chem 7: 07/19/22 13:51 07/19/22 13:51 Labs: Abnormal Lab Results - Last 24 Hours (Table) 07/19/22 07/19/22 07/20/22 Range/Units 13:51 13:51 05:25 RBC 5.60 H (3.80-5.40) m/uL Hct 46.8 H (34.0-46.0) % Sodium 136 L (137-145) mmol/L Glucose 118 H (74-99) mg/dL Total Protein 8.6 H (6.3-8.2) g/dL Albumin 5.1 H (3.5-5.0) g/dL Cholesterol 215.00 H (0.00-200.00) mg/dL LDL Cholesterol, Calc 146.6 H (0.0-131.0) mg/dL
[2022-07-20] MEDS: SODIUM CHLORIDE 0.9% 1,000 ML IV SCH (15:38)
[2022-07-21] MEDS: HEPARIN SODIUM,PORCINE/PF 5,000 UNIT/0.5 ML SYRINGE SQ SCH ×2 (00:02→08:23)
[2022-07-21] MEDS: SODIUM CHLORIDE 0.9% 1,000 ML IV SCH (03:47)
[2022-07-21 04:04] VITALS: TEMP 97.9
[2022-07-21 06:38] LABS: African American GFR (CKD) >90 (>60 ml/min/1.73 sqM); Anion Gap 4 mmol/L; Blood Urea Nitrogen 12 mg/dL (7-17); Calcium 8.7 mg/dL (8.4-10.2); Carbon Dioxide 32 mmol/L (22-30); Chloride 104 mmol/L (98-107); Glucose 111 mg/dL (74-99); Non-African American GFR(CKD) >90 (>60 ml/min/1.73 sqM); Sodium 140 mmol/L (137-145)
[2022-07-21] MEDS: ATORVASTATIN 20 MG TAB PO SCH (08:23)
[2022-07-21] MEDS: FAMOTIDINE 20 MG/2 ML VIAL IV SCH (08:24)
[2022-07-21 08:26] VITALS: BP 142/90; PULSE 57; RESP 16
[2022-07-21] MEDS ORDERED: ASPIRIN 81 MG PO SCH (09:00)
[2022-07-21] MEDS ORDERED: ATORVASTATIN 20 MG TAB PO SCH (09:00)
--- NOTE | 2022-07-21 10:05 | CA ---
Transthoracic Echo Report Name: Jessica Best Age: 52 Gender: F : 1970 Exam Date: 07/20/2022 08:12 Exam Location: [facility] Ht (in): 64 Wt (lb): 160 Ordering Physician: Vasile Summers MD Attending/Referring Phys: [id number], Kristopher Dirt Supervisor Ethel Olsen RDCS Procedure CPT: Indications: Rule out heart disease Cardiac Hx: Technical Quality: Fair Contrast 1: Total Dose (mL): Contrast 2: Total Dose (mL): MEASUREMENTS (Male / Female) Normal Values 2D ECHO LV Diastolic Diameter PLAX 3.4 cm 4.2 - 5.9 / 3.9 - 5.3 cm LV Systolic Diameter PLAX 2.6 cm IVS Diastolic Thickness 1.1 cm 0.6 - 1.0 / 0.6 - 0.9 cm LVPW Diastolic Thickness 1.1 cm 0.6 - 1.0 / 0.6 - 0.9 cm LV Relative Wall Thickness 0.6 RV Internal Dim ED PLAX 3.0 cm LA Volume 37.4 cm??? 18 - 58 / 22 - 52 cm??? M-MODE Aortic Root Diameter MM 3.4 cm LA Systolic Diameter MM 3.5 cm LA Ao Ratio MM 1.0 AV Cusp Separation MM 1.7 cm DOPPLER AV Peak Velocity 121.5 cm/s AV Peak Gradient 5.9 mmHg AV Mean Velocity 75.4 cm/s AV Mean Gradient 2.7 mmHg AV Velocity Time Integral 21.8 cm LVOT Peak Velocity 105.9 cm/s LVOT Peak Gradient 4.5 mmHg LVOT Velocity Time Integral 23.0 cm MV Area PHT 4.8 cm??? Mitral E Point Velocity 69.7 cm/s Mitral A Point Velocity 83.1 cm/s Mitral E to A Ratio 0.8 MV Deceleration Time 156.7 ms MV E' Velocity 6.6 cm/s Mitral E to MV E' Ratio 10.5 TR Peak Velocity 177.9 cm/s TR Peak Gradient 12.7 mmHg Right Ventricular Systolic Press 17.7 mmHg FINDINGS Left Ventricle Mildly increased septal wall thickness. Mildly increased posterior wall thickness. Normal left ventricular diastolic filling pattern. Left ventricular cavity size normal. Normal left ventricular systolic function with no obvious regional wall motion abnormalities. Left ventricular ejection fraction is estimated at 55-60 %. Right Ventricle Normal right ventricular size and function. Right ventricular systolic pressure within normal limits. Right Atrium Normal right atrial size. Left Atrium Normal left atrial size. Mitral Valve Structurally normal mitral valve. No mitral stenosis, regurgitation or prolapse. Aortic Valve No aortic valve stenosis or regurgitation. Tricuspid Valve Structurally normal tricuspid valve. Trace to mild tricuspid regurgitation. Pulmonic Valve Trace pulmonic regurgitation. Pericardium No pericardial effusion. Aorta Normal size aortic root and proximal ascending aorta. CONCLUSIONS Normal biventricular systolic function Mild mitral regurgitation Normal aortic valve Previewed by: Dr. Ye Graves MD (Electronically Signed) Final Date: 21 July 2022 10:04
--- NOTE | 2022-07-21 11:51 | CA ---
Stress Echo Report Jessica Best Age: 52 Gender: F : 1970 Exam Date: 07/21/2022 10:09 Exam Location: [facility] Ht (in): 65 Wt (lb): 135 Ordering Physician: Ciara Clark MD Referring Physician: LUISA CLARK,, Robot Technician: Henry Epps RDCS Technologist Procedure CPT: Indication: Chest Pain ICD-9 Codes: Rhythm: Patient History: Cardiac Medications: Medications in past 24 hours: Contrast: Stress Results Protocol: Eyad Total dose(mL): Exercise Duration (min:sec): [address] Depression (mm): Angina Score: Stewart Score: METS: 9.7 Resting HR: 86 Resting BP: 129 / 54 Peak HR: 167 Peak BP: 168 / 82 Max Predicted HR: 166 101 % Max Predicted HR Target HR: 141 Double Product: 13038 Stress Summary: BP Response: Reason for Termination: MAX EXERTION/TARGET HR Cardiac Symptoms: NO SYMPTOMS ECG Analysis Resting ECG: Stress ECG: Arrhythmia: Echo Analysis Resting Echo: Peak Echo Analysis: MEASUREMENTS (Male/Female) Normal Values CONCLUSIONS Excellent exercise tolerance Normal EKG and echocardiogram in response to exercise Dr. Ye Graves MD (Electronically Signed) Final Date: 21 July 2022 11:50
--- NOTE | 2022-07-21 22:44 | PN ---
PROGRESS NOTE SUBJECTIVE: Ms. Best is feeling better. No further chest pain. OBJECTIVE: VITAL SIGNS: Stable. Heart rate and blood pressure are good. HEART: S1 and S2 heard normally. LUNGS: Clear. ABDOMEN: Unchanged. LOWER EXTREMITIES: Unchanged. PLAN: To increase activity and possible discharge if stress test is negative. She is going for a stress echo today. MMODL / IJN: [id number] /
--- NOTE | 2022-07-27 03:13 | P.DS ---
Providers Date of admission: 07/19/22 14:50 Expected date of discharge: 07/21/22 Attending physician: Vasile Summers MD Consults: 07/19/22 14:50 Consult Physician Urgent Consulting Provider: [facility] Consult Reason/Comments: Chest pain Do you want consulting provider notified?: Yes Primary care physician: Ladonna Solomon Hospital Course: Final diagnosis Chest pain, atypical, ruled out ACS, negative stress test Mild elevated glucose, present on admission with no history of diabetes, sample was non-fasting History of hypothyroidism, currently euthyroid and maintained off supplements Hyperlipidemia Hypertension Discharge disposition Patient is being discharged in a stable condition with guarded prognosis to home. Patient will follow-up with Dr. Solomon in the outpatient setting upon discharge. Patient is to follow-up with cardiology outpatient. Total time taken is greater than 35 minutes. Hospital course This is a 52-year-old female who was recently admitted with chest pain and ruled out ACS. Patient pain closely monitored underwent stress echo which was negative and has been cleared by cardiology for outpatient follow-up. Patient will continue on current medication regimen as mentioned below and recommended follow-up with primary care provider as well this week. Patient has been cleared by cardiology and recommended to refer to consultation notes for further HPI. Currently no reports of chest pain, shortness of breath, or palpitations. Patient is afebrile. No reports of nausea or vomiting and patient is tolerating diet. Patient will be discharged home today. Physical exam: Gen: This is a 52-year-old female who is awake, alert and oriented, well- developed, well-nourished HEENT: Head is atraumatic, normocephalic. Pupils equal, round. Sclerae is anicteric. NECK: Supple. No JVD. No lymphadenopathy. No thyromegaly. LUNGS: Clear to auscultation. No wheezes or rhonchi. No intercostal retractions. HEART: Regular rate and rhythm. No murmur. ABDOMEN: Soft. Bowel sounds are present. No masses. No tenderness. EXTREMITIES: No pedal edema. No calf tenderness. NEUROLOGICAL: Patient is awake, alert and oriented x3. Cranial nerves 2 through 12 are grossly intact. Please refer to medication reconciliation sheet for a list of medications. The impression and plan of care has been dictated by Isamar Miller, Nurse Practitioner as directed. Dr. Ayse MD I have performed a history and examination and MDM of this patient, discussed the same with the dictator, and agree with the dictator's assessment and plan as written ,documented as a scribe. Based on total visit time, I have performed more than 50% of the visit. Patient Condition at Discharge: Stable Plan - Discharge Summary Discharge Rx Participant: Yes New Discharge Prescriptions: New Aspirin 81 mg PO DAILY #30 tab Atorvastatin [Lipitor] 20 mg PO DAILY 30 Days #30 tab Nitroglycerin Sl Tabs [Nitrostat] 0.4 mg SUBLINGUAL Q5M PRN #30 tab PRN Reason: Chest Pain Metoprolol Tartrate [Lopressor] 12.5 mg PO BID 30 Days #60 tab Acetaminophen Tab [Tylenol] 650 mg PO Q6HR PRN tab PRN Reason: Fever And/ Or Pain Continue Cyanocobalamin [Vitamin B-12] 500 mcg PO DAILY Zinc 10mg 10 mg PO DAILY Ascorbic Acid [Vitamin C] 3,000 mg PO DAILY Dextroamphetamine/Amphetamine [Adderall] 15 mg PO DIRECTED Magnesium Oxide [Magnesium] 500 mg PO DAILY [place]-3/Dha/Epa/Fish Oil [Fish Oil 1,000 mg Softgel] 1 cap PO DAILY Cholecalciferol [Vitamin D3 (25 Mcg = 1000 Iu)] 50 mcg PO DAILY Discharge Medication List Cyanocobalamin [Vitamin B-12] 500 mcg PO DAILY 12/05/18 [History] Ascorbic Acid [Vitamin C] 3,000 mg PO DAILY 07/19/22 [History] Cholecalciferol [Vitamin D3 (25 Mcg = 1000 Iu)] 50 mcg PO DAILY 07/19/22 [History] Dextroamphetamine/Amphetamine [Adderall] 15 mg PO DIRECTED 07/19/22 [History] Magnesium Oxide [Magnesium] 500 mg PO DAILY 07/19/22 [History] [place]-3/Dha/Epa/Fish Oil [Fish Oil 1,000 mg Softgel] 1 cap PO DAILY 07/19/22 [History] Zinc 10mg 10 mg PO DAILY 07/19/22 [History] Acetaminophen Tab [Tylenol] 650 mg PO Q6HR PRN tab 07/21/22 [Rx] Aspirin 81 mg PO DAILY #30 tab 07/21/22 [Rx] Atorvastatin [Lipitor] 20 mg PO DAILY 30 Days #30 tab 03/14/23 [Rx] Metoprolol Tartrate [Lopressor] 12.5 mg PO BID 30 Days #60 tab 07/21/22 [Rx] Nitroglycerin Sl Tabs [Nitrostat] 0.4 mg SUBLINGUAL Q5M PRN #30 tab 07/21/22 [Rx] Follow up Appointment(s)/Referral(s): Ladonna Solomon MD [Primary Care Provider] - 07/23/22 1:00 pm Ye Graves MD [STAFF PHYSICIAN] - 07/28/22 3:00 pm (At the [facility] office) Patient Instructions/Handouts: Chest Pain (DC) Activity/Diet/Wound Care/Special Instructions: Activity Limited until follow-up Follow-up with primary care provider on discharge Follow-up with cardiology outpatient in the next 2-3 weeks Continue taking medications as prescribed Continue heart healthy diet Discharge Disposition: HOME SELF-CARE
== END 2022-07-21 15:43 | disposition home or self-care (01) ==
LOC: EC 13:20 → INTOOBSV 14:50 → 3SCARD 14:50 → UNDODISIN 07-21 15:43
PROVIDERS: ADMIT Internal Medicine; ATTEND Internal Medicine
DX: R07.89 Other chest pain (principal); R00.2 Palpitations; R73.9 Hyperglycemia, unspecified; E78.5 Hyperlipidemia, unspecified; E03.9 Hypothyroidism, unspecified; R73.03 Prediabetes; I10 Essential (primary) hypertension; J45.909 Unspecified asthma, uncomplicated; K21.9 Gastro-esophageal reflux disease without esophagitis; F90.9 Attention-deficit hyperactivity disorder, unspecified type; F41.9 Anxiety disorder, unspecified; D64.9 Anemia, unspecified; Z87.891 Personal history of nicotine dependence; Z79.1 Long term (current) use of non-steroidal anti-inflammatories (NSAID); Z79.890 Hormone replacement therapy; Z79.899 Other long term (current) drug therapy
CPT/HCPCS: 96374; 99285; 36415; 94760 ×2; 93005; 93306; 93351; 85379; 84439; 84481; 80061; 80053; 80048; 84443; 83735; 84484; 85025; 85610; 85730; 83036; 71046; G0378 ×3; J2060